=== PATIENT | female | born 2000 ===

== ENCOUNTER 2025-07-12 10:00 | Day surgery (SDC) | payer OTHER ==
[2025-07-05 09:35] VITALS: BP 120/80
[2025-07-05 09:57] LABS: BASO % 0.9 % (0.1-1.2); EOS # 0.27 (0.04-0.54); EOS % 3.8 % (0.7-7.0); LYMPH # 2.65 (1.18-3.74); LYMPH % 37.7 % (19.3-53.1); MEAN PLATELET VOLUME 9.60 fl (9.4-12.4); MONO # 0.35 (0.24-0.82); MONO % 5.0 % (4.7-12.5); NEUT # 3.68 (1.56-6.13); NEUT % 52.3 % (34.0-71.1); RED CELL DISTRIBUTION WIDTH 12.0 % (11.6-14.4)
[2025-07-05 10:01] LABS: URINE APPEARANCE Clear; URINE BILIRRUBIN Negative (NEGATIVE); URINE BLOOD Negative; URINE COLOR Yellow; URINE GLUCOSE Negative (NEGATIVE); URINE KETONE Negative (NEGATIVE); URINE LEUKOCYTE Negative; URINE NITRATE Negative; URINE PROTEIN Negative (NEGATIVE); URINE UROBILINOGEN 0.2 E.U./dl
[2025-07-05 10:03] LABS: URINE BACTERIA 302.3 uL (0.0-1933); URINE CAST 0.14 uL (0.0-1.40); URINE EPITHELIAL CELLS 38.2 uL (0.0-38.8); URINE RBC 10.7 uL (0.0-20.8); URINE WBC 10.3 uL (0.0-23.2)
[2025-07-05 10:07] LABS: INR 1.01
[2025-07-05 10:43] LABS: ALT/SGPT 33.0 U/L (12-78); AST/SGOT 19.0 U/L (15-37); BILIRUBIN TOTAL 0.37 mg/dL (0.3-1.2); BUN CREA RATIO 11.0 (7.0-25.0); CREATININE SERUM 0.88 mg/dL (0.55-1.02); GFR 77.67; GLOBULINA 4.1 G/DL (2.4-3.5); GLUCOSE FASTING 86.0 mg/dL (65-100); OSMOLALITY SERUM 280.0 MOSM/KG (275-295)
[~2025-07-12] VITALS: Ht 160 cm; Wt 93.9 kg
[2025-07-12] MEDS ORDERED: POVIDONE-IODINE 118 ML BOTT TOP ONE (12:14)
[2025-07-12] MEDS ORDERED: PROMETHAZINE HCL 50 MG/ML AMPUL IM ONE ×2 (14:15→19:36)
== END 2025-07-12 20:10 | disposition home or self-care (01) ==
LOC: CIR.AMB 10:00
PROVIDERS: ATTEND Student in an Organized Health Care Education/Training Program
DX: N85.00 Endometrial hyperplasia, unspecified (principal)